=== PATIENT | female | born 1960 | race Caucasian/White ===

== ENCOUNTER 2023-04-02 08:21 | Emergency (ER) | payer BC, OTHER ==
[2023-04-02 08:35] VITALS: PULSE 109; TEMP 98; BMI 25.0
[2023-04-02] MEDS ORDERED: AMOX TR/POT CLAV 875MG/125MG TABLETS (FP) PO ONE (09:35)
[2023-04-02] MEDS ORDERED: ACETAMINOPHEN 325 MG TABLET (FP) PO ONE (09:35)
[2023-04-02] MEDS ORDERED: ACETAMINOPHEN 325 MG TABLET (FP) ONE (09:39)
[2023-04-02] MEDS ORDERED: AMOX TR/POT CLAV 875MG/125MG TABLETS (FP) ONE (09:39)
[2023-04-02 09:55] VITALS: BP 140/80; RESP 16
== END 2023-04-02 10:02 | disposition home or self-care (01) ==
LOC: JER 08:21 → JERFT 08:21
DX: R51.9 Headache, unspecified (principal); R09.81 Nasal congestion; R09.82 Postnasal drip; R05.9 Cough, unspecified; R11.0 Nausea; M79.10 Myalgia, unspecified site; J01.90 Acute sinusitis, unspecified; R50.9 Fever, unspecified; Z20.822 Contact with and (suspected) exposure to COVID-19
CPT/HCPCS: 0241U-QW; 99283-25